=== PATIENT | female | born 1985 | race Caucasian/White ===

== ENCOUNTER 2016-08-26 16:42 | Emergency (ER) | payer OTHER ==
[~2016-08-26] VITALS: Ht 157.5 cm; Wt 59.1 kg
[2016-08-26 16:52] VITALS: BP 134/93; PULSE 72; RESP 16; O2SAT 99
[2016-08-26] MEDS ORDERED: SKYLA CERVICAL (16:59)
--- NOTE | 2016-08-26 17:01 | ED.REPORT ---
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 She was using the patient's IV and the syringe came off and splashed blood onto her face. She is concerned it may have gotten into her eye. She does not have any open wounds on her face. She cleaned the area off prior to my evaluation. The patient she was exposed to was seen here for a drug overdose. Her tetanus is up to date. Nursing Notes Stated Complaint: EXPOSURE Chief Complaint: Post Exposure Body Fluids Nursing Notes Reviewed: Yes Allergies: Coded Allergies: No Known Allergies (Unverified , 08/26/16) Miscellaneous Medications ([katie]) CERVICAL General Time Seen by MD: 17:01 Chief Complaint Other (blood exposure) Hx Obtained From: Patient Arrived By: Walk-in Sudden in Onset?: Yes Onset Occurred: Just prior to arrival Symptom Duration: Since onset Severity: Current: No pain currently Severity: Maximum: No pain Recent Healthcare: No recent doctor visit, No recent hospitalization Similar Sx Previous: No Past Medical History Past Medical History none Past Surgical History Breast augmentation Family History Noncontributory Smoking History Never Smoker Social History Alcohol Use: "Social" Other Social History: Good social support, Local resident Occupation ED credit collector Status Independent Review of Systems +blood exposure, no other complaints Complete sys rev & neg: except as marked. Physical Exam Vital Signs Vital Signs Date Time Temp Pulse Resp B/P Pulse Ox O2 Delivery O2 Flow Rate FiO2 08/26/16 16:52 36.8 72 16 134/93 99 Room Air Initial VS: Reviewed Head / Eyes: Atraumatic, Normocephalic, PERRL ENT: Mucous membranes moist, Conjunctiva normal, No scleral icterus Neck: Supple, Non-tender, Full range of motion Respiratory: No respiratory distress Abdomen / GI: No distention Extremities: Vascular intact, Neuro intact, No swelling, No tenderness Skin: Warm, Dry, No cyanosis Neurologic: Alert, Oriented, Nonfocal Psychiatric: Mood/affect normal, Behavior normal, Normal thought content General/Constitutional: Awake, Alert, No acute distress, Cooperative Interpretation & Diagnostics Lab Results Interpretation Test 08/26/16 17:29 Re-Eval/Medical Decision Med Decision/Clinical Course Overall very low risk. Time of Eval: 17:12 Re-Evaluation/Progress Note: Recommended that she rinse her eyes in the eye washing station. Time of Eval: 17:34 Re-Evaluation/Progress Note: Discussed followup protocol. All questions were addressed. Counseled Regarding: Diagnosis, Lab results, Need for follow-up, When/why to return to ED Discharge & Departure Primary Impression: Exposure to blood Disposition: Home Discharge Condition All VS Reviewed: Yes Condition: Stable Additional Instructions: Thank you for entrusting us with your care today. Followup with occupational health. Return to emergency department for any concerns. Referrals: [facility] (PCP) Scribe Attestation Portions of this note were transcribed by Tameka Manning. I, Dr. Rodriguez personally performed the history, physical exam and medical decision-making; I reviewed and confirmed the accuracy of the information in the transcribed note. Signed by: Jessica Merrill, 08/26/16 at 1800. Manuelito Rodriguez DO Aug 26, 2016 17:01 Tameka Manning Aug 26, 2016 17:07
== END 2016-08-26 17:53 | disposition home or self-care (01) ==
LOC: SED 16:42
DX: Z77.21 Contact with and (suspected) exposure to potentially hazardous body fluids (principal); Z11.4 Encounter for screening for human immunodeficiency virus [HIV]
CPT/HCPCS: 36415; 86706; 87340; 99283; G0433